=== PATIENT | female | born 1945 | race Caucasian/White ===

== ENCOUNTER 2018-10-05 07:16 | Inpatient (IN) ==
--- NOTE | 2018-10-04 19:31 | MH ---
cc: Tl Cleveland MD DATE OF ADMISSION: 10/05/2018 PREOPERATIVE DIAGNOSIS: End-stage osteoarthritis, right knee. PROPOSED SURGERY: Total knee replacement arthroplasty, right knee. ADDITIONAL DIAGNOSES: 1. Hypertension. 2. Chronic kidney disease, stage III. 3. Actinic keratosis. PERSONAL HISTORY: She does not smoke. She does not drink. She is quite active. HISTORY OF PRESENT ILLNESS: She has a long history of problems with both knees. She has been told that she has [id number] and needs a total knee replacement, but she has been putting it off. She has had steroid injections twice with temporary relief. She has been taking ibuprofen [id number] in spite of having chronic kidney disease because that is the only thing that helps her pain. She was seen several weeks ago, evaluated, had x-rays done and alternatives discussed. It was recommended to consider viscosupplementation, but she does not want anything temporary and wants a permanent fix and therefore, is being brought in for total knee replacement arthroplasty. The patient has actinic keratosis and a dermatology consult was obtained. They feel that there is no contraindication to surgery. She has a couple of lesions with a small, pink lesion in the infrapatellar area, which can be easily avoided with the surgical incision medial to it. She also has a keratotic lesion on the dorsum of the foot. The patient states that they just fall off and it is healed underneath. The supervisor shipfitters feels no emergent intervention is needed and neither of them have any evidence of infection. The procedure of total knee replacement arthroplasty and the potential risks, hazards, complications, expected results, postop care, post hospital care, pain management, nerve blocks, prophylactic anticoagulation, etc., have all been discussed. Informed consent has been obtained. No guarantees made. PHYSICAL EXAMINATION: Reveals an average built, well-nourished white female who has varus deformities of both knees. She does not use any assistive devices to ambulate. There is a small, pink spot of actinic keratosis over the patellar tendon on the right knee. There is some swelling of the right knee and lack of terminal extension of about 5 degrees and flexion of about 10 degrees. She also has a keratotic lesion in the dorsum of the foot with no open area and no evidence of infection. She has palpable pedal pulses and she moves her toes well. The patient has been following the infection prevention protocol with chlorhexidine wipes. Head is normocephalic. Pupils are reacting to light. Face symmetrical. Heart has a regular rhythm, no murmurs. Lungs are clear to auscultation. Abdomen is soft and supple. She has been recently evaluated by her disability advocate, who has cleared for her surgery. She does have chronic kidney disease. Informed consent has been obtained. No guarantees made. MD NIC Yost/yamilet , 06:48 PM , 06:59 PM
[2018-10-05] MEDS ORDERED: Sodium Chlor 0.9% Inj 40 ML, Bupivacaine Liposo PF 1.3% Inj 20 ML P-ARTICULR ONE ×2 (08:02)
[2018-10-05] MEDS ORDERED: Chlorhexidine Gluconate 2% 1 Pack (2 Cloths) TOPICAL SCH (08:24)
[2018-10-05] MEDS ORDERED: Metoprolol Tartrate 25 MG Tablet PO SCH ×2 (08:24→21:00)
[2018-10-05] MEDS ORDERED: Sodium Chlor 0.9% Inj 500 ML IV.SIG SCH (09:00)
[2018-10-05] MEDS ORDERED: ceFAZolin 2 GM Premix Inj 2 GM/50 ML PIGGYBACK IV.SIG SCH (09:00)
[2018-10-05] MEDS ORDERED: TRANEXAMIC ACID IV.SIG SCH ×2 (09:00→12:00)
[2018-10-05] MEDS ORDERED: SODIUM CHLOR 0.9% IV.SIG SCH ×2 (09:00→12:00)
[2018-10-05] MEDS ORDERED: Sodium Chlor 0.9% Inj 40 ML, Bupivacaine Liposo PF 1.3% Inj 20 ML, Bupivacaine/Epi PF 0... P-ARTICULR SCH ×3 (09:00)
[2018-10-05] MEDS ORDERED: fentaNYL Citrate Inj 250 MCG/5 ML Ampul ONE (09:24)
[2018-10-05] MEDS ORDERED: Bupivacaine/Dextrose 0.75% Inj 2 ML Ampul ONE (09:42)
[2018-10-05] MEDS ORDERED: Vancomycin Inj 750 MG in Sodium Chlor 0.9% Inj 250 ML IV.SIG ONE (10:00)
[2018-10-05] MEDS ORDERED: Aluminum/Magnesium/Simethacone Susp 30 ML UDC PO PRN (11:57)
[2018-10-05] MEDS ORDERED: Post-op Orders (for Pharmacy) OTHER STA (11:57)
[2018-10-05] MEDS ORDERED: Bisacodyl 10 MG Supp RECTAL PRN (11:57)
[2018-10-05] MEDS ORDERED: Morphine Inj 4 MG/ML Vial IV.PUSH PRN (11:57)
[2018-10-05] MEDS ORDERED: Sod Chloride 0.9% Inj 1,000 ML IV.CONT SCH (12:00)
[2018-10-05] MEDS ORDERED: *morphine SULFATE 4 MG/ML PERIprocedure ONLY ONE ×3 (12:35→13:22)
--- NOTE | 2018-10-05 13:05 | MP ---
cc: Tl Cleveland MD DATE OF OPERATION: 10/05/2018 PREOPERATIVE DIAGNOSIS: Osteoarthritis, right knee. POSTOPERATIVE DIAGNOSIS: Osteoarthritis, right knee. OPERATIVE PROCEDURE: Total knee replacement arthroplasty right knee using cemented Biomet components. Femur 62.5 mm, tibia 67 mm with I-beam, poly 12-, patella, extra small single peg. SURGEON: Tl Cleveland MD ANESTHESIA: General. TECHNIQUE: After induction of general anesthesia, the patient was placed appropriately on the operating table with the upper extremities properly protected and the well leg properly padded. Right lower extremity thoroughly prepped with alcohol and ChloraPrep and draped in routine fashion. After application of Esmarch bandage, tourniquet was inflated to 300 mmHg. A medial to midline incision was made, deepened through the subcutaneous tissue. Medial parapatellar arthrotomy incision was carried out. Patella was retracted laterally. There was oikf-iy-lior medial compartment with literally no medial meniscus. Limited medial dissection was carried out from the medial face of the tibia to the mid medial point, removing osteophytes at the same time. The femoral canal opened anterior to the posterior cruciate ligament and the distal femoral cutting guide set at 5 degrees was used to make the distal femoral cut. A tibial cut was made using the external tibial guide with about 5 degrees of posterior inclination and referencing 4 mm from the lower most portion of the medial plateau and then increased by 2 more millimeters to get a good tibial cut. Cleanup was carried out. The AP guide was now used in 3 degrees of external rotation and adjustments were made for proper external rotation after the initial holes were made, referencing the Whitesides line and the epicondylar axis. AP and chamfer cuts were made with a 62.5 mm jig. Posterior condyles were cleaned and the joint was debrided. Spacer block was used, which shows significant tightening medially and accepts the block nicely laterally. Therefore, attention was then directed to get some medial release starting anteriorly, dividing the upper 1.5 cm of the pes tendon, leaving the superficial medial collateral ligament intact by dissecting underneath to release the deep capsule and deep collateral ligament with some of the semimembranosus attachment. Once we did this, there was good balancing of the knee. Trial implants were placed and everything looked good. We used an -tibial insert, which makes it work very smoothly. Patellar was prepared following routine technique. Trial reduction was good. All trial implants removed. A dilute solution of Exparel mixed with saline and Marcaine were injected all around the joint, particularly inferomedially. Joints were thoroughly lavaged and suctioned out. The femoral canal plugged with bone and using 2 units of Biomet cement with antibiotic in it, cementation was carried out, starting with the tibia, then the femur, then the patella and extended with a 12 mm spacer. Once the cement solidified, everything looks good; tourniquet was released. Hemostasis was good. Joint was thoroughly lavaged and suctioned out, followed by introduction of a 12 mm polyethylene spacer, getting good position, alignment and stability. The wound was now closed in flexion with interrupted #2 Vicryl, supplemented with a #2 Quill, and the subcutaneous tissue with Vicryl and skin with a 3-0 subcuticular Quill and Steri-Strips. Dermabond dressing will be applied. A dressing applied with Xeroform, 4 x 4's, ABD, and a Sof-Rol and Ted bandage with ice bladder. The patient was transferred to the recovery room in satisfactory condition. The patient tolerated the procedure well. COMPLICATIONS: None. POSTOPERATIVE CONDITION: Satisfactory. TOURNIQUET TIME: 63 minutes. Initial 10 minutes, followed by deflation and reinflation because of breakthrough bleeding. ESTIMATED BLOOD LOSS: 250 mL MD NIC Yost/jeb , 12:09 PM , 12:20 PM
[2018-10-05] MEDS ORDERED: *Ondansetron Inj 4 MG/2 ML Vial PERIprocedural Use ONLY ONE (13:34)
--- NOTE | 2018-10-05 14:15 | XR ---
EXAM DATE: 10/05/2018 2:07 PM EST AGE/SEX: 73 years / Female INDICATIONS: Post-op Right knee. CLINICAL DATA: This is the patient's initial encounter. Patient reports that signs and symptoms have been present for 1 day and indicates a pain score of 9/10. MEDICAL/SURGICAL HISTORY: None. None. COMPARISON: No prior exams available for comparison. FINDINGS: Right total knee arthroplasty is present. Hardware appears intact. Alignment is anatomic. Surgical dr gray is present. CONCLUSION: Satisfactory postop appearance Electronically signed by: Hank Oneal MD 10/05/2018 2:14 PM EST
[2018-10-05] MEDS: ceFAZolin 1 GM Premix Inj 1 GM/50 ML IV.SIG SCH (17:51)
[2018-10-05] MEDS ORDERED: Vancomycin Inj 1,000 MG in Sodium Chlor 0.9% Inj 250 ML IV.SIG ONE (18:00)
[2018-10-05] MEDS: Senna/Docusate Sodium 8.6/50 MG Tablet PO SCH (21:58)
[2018-10-05] MEDS: Temazepam 15 MG Capsule PO PRN (22:04)
[2018-10-06] MEDS: ceFAZolin 1 GM Premix Inj 1 GM/50 ML IV.SIG SCH ×2 (02:30→12:59)
[2018-10-06 05:30] LABS: Hematocrit 30.4 % (35.0-46.0); Hemoglobin 10.3 gm/dL (11.6-15.3)
[2018-10-06] MEDS: Senna/Docusate Sodium 8.6/50 MG Tablet PO SCH ×2 (08:55→20:54)
[2018-10-06] MEDS ORDERED: Allopurinol 300 MG Tablet PO SCH (09:00)
[2018-10-06] MEDS ORDERED: Lisinopril 20 MG Tablet PO SCH ×2 (09:00→15:00)
[2018-10-06] MEDS ORDERED: Rivaroxaban 10 MG Tablet PO SCH (12:00)
[2018-10-06] MEDS: Rivaroxaban 10 MG Tablet PO SCH (14:33)
--- NOTE | 2018-10-06 14:41 | P.DCO ---
- Physical Therapy Knee: Total knee, Protocol: Right Right Lower Extremity Weight Bearing: Weight bearing as tolerated Right Lower Extremity Range of Motion: Active assistive ROM - Nursing RN days per week: 3 Nursing: Other (monitor dressings etc) Dressing changes: Other (leave Prineo dressing intact. Change outer drsg as needed.OK to shower starting 10/12) - Certification Need for Home Health services: I have seen patient Reshma Corcoran on 10/06/18. My clinical findings support the need for the requested home health care services because: Need for Home Health Services: Limited ability to care for self Homebound Certification: I certify that my clinical findings support that this patient is homebound because: Homebound Certification: Unsafe to leave home unassisted, Unable to use public transportation
--- NOTE | 2018-10-06 14:44 | P.PNOP ---
Subjective Interval history: doing OK Physical Exam Vital signs: Vital Signs 10/05/18 15:00 10/05/18 15:30 10/05/18 15:45 Temperature 98.0 F Pulse Rate 72 79 85 Respiratory Rate 15 17 17 Blood Pressure 128/60 142/71 H 143/71 H Pulse Oximetry 96 99 99 10/05/18 16:15 10/05/18 20:00 10/06/18 00:00 Temperature 97.6 F 98.0 F 98.1 F Pulse Rate 92 H 97 H 86 Respiratory Rate 16 18 18 Blood Pressure 156/74 H 150/66 H 128/66 Pulse Oximetry 98 95 96 10/06/18 00:39 10/06/18 04:00 10/06/18 05:15 Temperature 98.4 F Pulse Rate 93 H Respiratory Rate 16 17 16 Blood Pressure 157/71 H Pulse Oximetry 97 10/06/18 08:00 10/06/18 11:55 Temperature 98 F 98.8 F Pulse Rate 80 85 Respiratory Rate 16 16 Blood Pressure 138/65 151/65 H Pulse Oximetry 93 L 95 Intake & Output 10/05/18 10/06/18 10/06/18 18:59 06:59 18:59 Intake Total 3716.16 / 3716.16 150 / 150 100 / 100 Output Total 500 / 500 20 / 20 Balance 3216.16 / 3216.16 130 / 130 100 / 100 Weight 86.6 kg 90.2 kg Intake: IV 1716.16 / 1716.16 150 / 150 100 / 100 Ofirmev Inj 1,000 mg In 100 ml 100 / 100 100 / 100 @ 400 mls/hr IV.SIG Q12HR [facility] Rx#:[id number] LR 1000 mL Inj 1,000 ML @ 30 1000 / 1000 mls/hr IV.SIG .Q24H [facility] Rx#: [id number] Cyklokapron Inj 866 MG In NS 108.66 / 108.66 Inj 100 ML @ 200 mls/hr IV.SIG PASTA MAKER [facility] Rx#:[id number] Vancomycin Inj 1,000 MG In NS 250 / 250 Inj 250 ML @ 250 mls/hr IV.SIG ONCE ONE Rx#:[id number] Vancomycin Inj 750 MG In NS Inj 257.5 / 257.5 250 ML @ 250 mls/hr IV.SIG ONCE ONE Rx#:[id number] Ancef 1 GM Premix Inj 1 gm In 50 / 50 50 / 50 50 ml @ 100 mls/hr IV.SIG Q8H [facility] Rx#:[id number] Ancef 2 GM Premix Inj 2 gm In 50 / 50 50 ml @ 100 mls/hr IV.SIG PASTA MAKER [facility] Rx#:[id number] Anesthesia Amount 1999 Output: Estimated Blood Loss 500 / 500 Wound Drainage # 1 Right Knee Other: # Voids 5 Date of Last Bowel Movement 10/04/18 10/05/18 Weight On Admission 86.6 kg Narrative: A,A, and O Alitle sore.able to do SLR and quad sets well. Drsgs dry, Moves right foort well Results - Labs CBC & Chem 7: 10/06/18 05:11 Laboratory Results - last 24 hr 10/06/18 05:11 Hgb 10.3 L Hct 30.4 L Assessment and Plan - Ortho Post Op Day # 1 - Assessment and Plan POD 1 TKA right BMP not in, to check Doing well overall. Meds reconsiled. Med consultation for elevated BP and check on renal status
[2018-10-06 15:37] LABS: Calcium 8.2 mg/dL (8.5-10.1); Carbon Dioxide 24.1 meq/L (21.0-32.0)
--- NOTE | 2018-10-06 16:24 | P.CONIM ---
History of Present Illness Service: [facility] Consult date: 10/06/18 Requesting Physician: Tl Cleveland Reason for Consult: STAGE 3 CKD, BLOOD PRESSURE AND POST OP RIGHT TOTAL KNEE Primary Care Provider: Blaine Courtney DO Chief Complaint: STAGE 3 CKD, BP, AND POST OP RIGHT TOTAL KNEE History of Present Illness: Patient is a 73-year-old female who underwent a right total knee arthroplasty by Dr. Cleveland due to end-stage osteoarthritis of the right knee on September. We have been asked to see her regarding hypertension and chronic kidney disease stage III and postop medical management of the right total knee. Patient has a chronic history of hypertension and chronic kidney disease and actinic keratosis. Has a history of being on multiple medications. Has history of arthritis, gout, history of hysterectomy, history of hypertension, history of kidney disease stage III, chronic right knee pain, wears dentures, history of tubal ligation, history of kidney biopsy. We will adjust her medications. Will hold the hydrochlorothiazide lisinopril and switch to Norvasc. We will get a.m. labs and will follow her chronic kidney disease while she is here. Review of Systems All other systems reviewed negative except as stated in HPI PMFSH - History History Provided By: Patient - Medical History Medical History: Medical History (Last Reviewed 10/06/18 @ 16:19 by Lance Green DO) Arthritis Gout H/O: hysterectomy Hypertension Kidney disease, chronic, stage III (GFR 30-59 ml/min) Knee pain, right Wears partial dentures - Surgical History Surgical History: Surgical History (Last Reviewed 10/06/18 @ 16:19 by Lance Green DO) H/O tubal ligation Hx of biopsy - Family History Family History: Family History (Last Updated 10/06/18 @ 16:19 by Lance Green DO) Other Family history of hypertension - Social History I have reviewed the patient's Social History: No - Tobacco History Second Hand Smoke Exposure: No Tobacco Use In Past 30 Days: No Smoking Status: Never smoker - Alcohol History How Often Do You Have a Drink Containing Alcohol: Never - Substance Use History Substance History: No History of Abuse - Travel History History of Recent Travel: No Recent Travel in the [place] Within the Last 8 Weeks: No Recent Travel Out of the Country Within the Last 8 Weeks: No - Immunization History Hx Influenza Vaccine This Season: Yes Medications and Allergies Active Medications: Active Medications Hydrocodone Bitart/Acetaminophen ([place] 5/325) 2 tab PO Q6H PRN PRN Reason: PAIN SCALE 5 TO 10 Last Admin: 10/06/18 14:33 Dose: 2 tab Al Hydrox/Mg Hydrox/Simethicone (Mag-Al Plus Susp Liq) 30 ml PO Q6H PRN PRN Reason: INDIGESTION Al Hydroxide/Mg Hydroxide (Milk Of Magnesia Liq) 30 ml PO BID PRN PRN Reason: Mild Constipation Allopurinol (Zyloprim) 300 mg PO DAILY [facility] Amlodipine Besylate (Norvasc) 10 mg PO DAILY [facility] Atorvastatin Calcium (Lipitor) 40 mg PO HS [facility] Last Admin: 10/05/18 21:59 Dose: 40 mg Bisacodyl (Dulcolax Supp) 10 mg RECTAL DAILY PRN PRN Reason: SEVERE CONSITIPATION Calcium/Vitamin D (Oscal With D 250/125 Mg) 2 tab PO DAILY [facility] Chlorhexidine Gluconate (Chlorhexidine 2% Cloth) 3 pack [facility] Stop: 10/08/18 08:23 Last Admin: 10/05/18 08:40 Dose: 3 pack Clonidine HCl (Catapres) 0.1 mg PO Q6H PRN PRN Reason: HYPERTENSION Diphenhydramine HCl (Benadryl Inj) 25 mg IV.PUSH Q6H PRN PRN Reason: ITCHING Cefazolin Sodium/Dextrose (Ancef 2 Gm Premix Inj) 2 gm in 50 mls @ 100 mls/hr IV.SIG [facility] Stop: 10/09/18 08:59 Last Infusion: 10/05/18 10:10 Dose: Infused Sodium Chloride (Ns Inj) 500 mls @ 30 mls/hr IV.SIG .Q10H [facility] Acetaminophen (Ofirmev Inj) 1,000 mg in 100 mls @ 400 mls/hr IV.SIG Q12HR [facility] Last Infusion: 10/06/18 12:58 Dose: Infused Sodium Chloride (Ns Inj) 1,000 mls @ 100 mls/hr IV.CONT .Q10H [facility] Last Admin: 10/06/18 04:15 Dose: 30 mls/hr Lactulose (Lactulose Liq) 30 ml PO DAILY PRN PRN Reason: SEVERE CONSITIPATION Metoprolol Succinate (Toprol Xl) 25 mg PO [facility] Metoprolol Tartrate (Lopressor) 25 mg PO [facility] Stop: 10/08/18 08:23 Last Admin: 10/05/18 10:08 Dose: Not Given Metoprolol Tartrate (Lopressor) 25 mg PO HS [facility] Last Admin: 10/05/18 21:59 Dose: 25 mg Morphine Sulfate (Morphine Inj) 4 mg IV.PUSH Q3H PRN PRN Reason: BREAKTHROUGH PAIN Multivitamins (Theragran) 1 tab PO DAILY [facility] Last Admin: 10/06/18 08:54 Dose: 1 tab Ondansetron HCl (Zofran Inj) 4 mg IV.PUSH Q6H PRN PRN Reason: NAUSEA OR VOMITING Povidone Iodine (Betadine 7.5% Scrub) 1 applicatio [facility] Stop: 10/08/18 08:59 Povidone Iodine (Betadine 5% Antisepsis Kit) 1 applicatio EACH [facility] Stop: 10/08/18 08:23 Last Admin: 10/05/18 09:00 Dose: 1 applicatio Rivaroxaban (Xarelto) 10 mg PO Q24H [facility] Last Admin: 10/06/18 14:33 Dose: 10 mg Senna/Docusate Sodium (Darlene-Colace) 1 tab PO BID [facility] Last Admin: 10/06/18 08:55 Dose: 1 tab Sennosides (Senokot) 17.2 mg PO BID PRN PRN Reason: Moderate Constipation Sodium Chloride (Ns Flush) 2 ml IV.FLUSH BID [facility] Last Admin: 10/06/18 12:58 Dose: 2 ml Sodium Chloride (Ns Flush) 2 ml IV.FLUSH PRN PRN PRN Reason: FLUSH AFTER USING IV ACCESS Temazepam (Restoril) 15 mg PO HS PRN PRN Reason: INSOMNIA Last Admin: 10/05/18 22:04 Dose: 15 mg Vitamin D (Vitamin D3) 1,000 unit PO DAILY [facility] Allergies Allergy/AdvReac Type Severity Reaction Status Date / Time sulfamethoxazole Allergy Hives Verified 10/05/18 07:59 [From Bactrim] trimethoprim [From Bactrim] Allergy Hives Verified 10/05/18 07:59 Home Medications Medication Instructions Recorded Confirmed Type allopurinol 300 mg PO DAILY 09/22/18 10/05/18 History calcium carbonate-vitamin D3 1 tab PO DAILY 09/22/18 10/05/18 History [Calcium 500 + D] cholecalciferol (vitamin D3) 1,000 unit PO DAILY 09/22/18 10/05/18 History [Vitamin D3] flaxseed oil 1,000 mg PO DAILY 09/22/18 10/05/18 History lisinopril-hydrochlorothiazide 1 tab PO DAILY 09/22/18 10/05/18 History metoprolol succinate 25 mg PO HS 09/22/18 10/05/18 History multivitamin [Daily Multiple] 1 tab PO DAILY 09/22/18 10/05/18 History omega-3 fatty acids-fish oil [Fish 1 cap PO DAILY 09/22/18 10/05/18 History Oil] rosuvastatin [Crestor] 20 mg PO HS 09/22/18 10/05/18 History Exam Vital signs: Vital Signs 10/05/18 20:00 10/06/18 00:00 10/06/18 00:39 Temperature 98.0 F 98.1 F Pulse Rate 97 H 86 Respiratory Rate 18 18 16 Blood Pressure 150/66 H 128/66 Pulse Oximetry 95 96 10/06/18 04:00 10/06/18 05:15 10/06/18 08:00 Temperature 98.4 F 98 F Pulse Rate 93 H 80 Respiratory Rate 17 16 16 Blood Pressure 157/71 H 138/65 Pulse Oximetry 97 93 L 10/06/18 11:55 Temperature 98.8 F Pulse Rate 85 Respiratory Rate 16 Blood Pressure 151/65 H Pulse Oximetry 95 Intake & Output 10/05/18 10/06/18 10/06/18 18:59 06:59 18:59 Intake Total 3716.16 / 3716.16 150 / 150 100 / 100 Output Total 500 / 500 20 / 20 Balance 3216.16 / 3216.16 130 / 130 100 / 100 Weight 86.6 kg 90.2 kg Intake: IV 1716.16 / 1716.16 150 / 150 100 / 100 Ofirmev Inj 1,000 mg In 100 ml 100 / 100 100 / 100 @ 400 mls/hr IV.SIG Q12HR [facility] Rx#:[id number] LR 1000 mL Inj 1,000 ML @ 30 1000 / 1000 mls/hr IV.SIG .Q24H [facility] Rx#: [id number] Cyklokapron Inj 866 MG In NS 108.66 / 108.66 Inj 100 ML @ 200 mls/hr IV.SIG [facility] Rx#:[id number] Vancomycin Inj 1,000 MG In NS 250 / 250 Inj 250 ML @ 250 mls/hr IV.SIG ONCE ONE Rx#:[id number] Vancomycin Inj 750 MG In NS Inj 257.5 / 257.5 250 ML @ 250 mls/hr IV.SIG ONCE ONE Rx#:[id number] Ancef 1 GM Premix Inj 1 gm In 50 / 50 50 / 50 50 ml @ 100 mls/hr IV.SIG Q8H [facility] Rx#:[id number] Ancef 2 GM Premix Inj 2 gm In 50 / 50 50 ml @ 100 mls/hr IV.SIG [facility] Rx#:[id number] Anesthesia Amount 1999 / 1999 Output: Estimated Blood Loss 500 / 500 Wound Drainage # 1 Right Knee Other: # Voids 5 Date of Last Bowel Movement 10/04/18 10/05/18 Weight On Admission 86.6 kg Narrative: GENERAL: Awake alert and oriented x3 talkative and cooperative appears to be in no acute distress SKIN: Warm and dry. HEAD: Atraumatic. Normocephalic. EYES: Pupils equal and round. No scleral icterus. No injection or drainage. EOMI ENT: No nasal bleeding or discharge. Mucous membranes pink and moist. Tongue is midline NECK: Trachea midline. No JVD. Supple CARDIOVASCULAR: Regular rate and rhythm. S1-S2 no S3 or S4 RESPIRATORY: No accessory muscle use. Clear to auscultation. Breath sounds equal bilaterally. GASTROINTESTINAL: Abdomen soft, non-tender, nondistended. Hepatic and splenic margins not palpable. MUSCULOSKELETAL: Extremities without clubbing, cyanosis, or edema. No obvious deformities. Right knee is dressed NEUROLOGICAL: Awake and alert. No obvious cranial nerve deficits. Motor grossly within normal limits. Five out of 5 muscle strength in the arms and legs. Normal speech. PSYCHIATRIC: Appropriate mood and affect; insight and judgment normal. Results - Labs CBC & Chem 7: 10/06/18 05:11 10/06/18 15:01 Labs: Laboratory Results - last 24 hr 10/06/18 10/06/18 05:11 15:01 Hgb 10.3 L Hct 30.4 L Sodium 134 L Potassium 4.0 Chloride 102 Carbon Dioxide 24.1 Anion Gap 8 BUN 39 H Creatinine 1.77 H Estimated GFR 28 L Random Glucose 109 H Calcium 8.2 L - Imaging ITS Impressions Knee X-Ray 10/05/18 00:00 CONCLUSION: Satisfactory postop appearance Assessment and Plan - Plan Status post right total knee arthroplasty on October 05, 2018 postop day #2 -Pain control per orthopedic -DVT prophylaxis per orthopedic Hypertension currently on multiple medications including Toprol and lisinopril hydrochlorothiazide Renal insufficiency chronic kidney disease stage III -We will adjust medications and hold the lisinopril hydrochlorothiazide and switch for Norvasc 10 mg p.o. daily -Continue on metoprolol -A.m. labs Osteoarthritis -Pain control per orthopedic Hyperlipidemia continue on Crestor Continue on flaxseed oil Gout continue on allopurinol Vitamin D deficiency continue on calcium carbonate and vitamin D DVT prophylaxis per orthopedic currently on Xarelto 10 mg p.o. daily Not on GI prophylaxis at this time-denies any GI symptomatology A.m. labs DC hydrochlorothiazide and lisinopril Switch to Norvasc 10 mg p.o. daily May need prescription for Norvasc 10 mg p.o. daily at discharge Code Status: Full code Discussed Condition With: RN and patient and family Discharge Planning: Hopefully discharge tomorrow per orthopedics if cleared
[2018-10-06] MEDS: Allopurinol 300 MG Tablet PO SCH (18:11)
[2018-10-06] MEDS: Temazepam 15 MG Capsule PO PRN (21:56)
[2018-10-07 06:04] LABS: Baso % (Auto) 0.1 % (0.0-2.0); Hematocrit 32.1 % (35.0-46.0); Hemoglobin 10.7 gm/dL (11.6-15.3); Lymph # (Auto) 0.9 th/mm3 (1.0-4.8); Lymph % (Auto) 7.1 % (9.0-44.0); Mean Corpuscular HGB Conc 33.4 % (32.0-36.0); Mean Platelet Volume 9.9 fL (7.0-11.0); Mono # (Auto) 1.4 th/mm3 (0.0-0.9); Neut % (Auto) 81.8 % (16.0-70.0); Platelet Count 167 th/mm3 (150-450); Red Blood Count 3.45 mil/mm3 (4.00-5.30); Red Cell Distribution Width 14.5 % (11.6-17.2); White Blood Count 12.3 th/mm3 (4.0-11.0)
[2018-10-07 06:28] LABS: Albumin 2.8 g/dL (3.4-5.0); Anion Gap 8 meq/L (5-15); Aspartate Aminotransferase 27 U/L (15-37); Blood Urea Nitrogen 35 mg/dL (7-18); Calcium 8.1 mg/dL (8.5-10.1); Carbon Dioxide 24.5 meq/L (21.0-32.0); Chloride 106 meq/L (98-107); Glomerular Filtration Rate 32 mL/min (>89); Glucose,Random 113 mg/dL (74-106); Potassium 3.9 meq/L (3.5-5.1); Sodium 138 meq/L (136-145)
[2018-10-07 06:38] LABS: Alanine Aminotransferase 14 U/L (10-53); Alkaline Phosphatase 46 U/L (45-117); Free T4 (Free Thyroxine) 1.44 ng/dL (0.76-1.46); Phosphorus 3.4 mg/dL (2.5-4.9); Thyroid Stimulating Hormone 0.632 uIU/mL (0.358-3.740); Total Protein 6.1 g/dL (6.4-8.2)
[2018-10-07] MEDS ORDERED: amLODIPine 10 MG Tablet PO SCH (09:00)
[2018-10-07] MEDS ORDERED: Calcium/Vitamin D 250/125 MG Tablet PO SCH (09:00)
[2018-10-07] MEDS ORDERED: Lisinopril 20 MG Tablet PO SCH (09:00)
[2018-10-07] MEDS ORDERED: CALCIUM CARBONATE VITAMIN D3 PO SCH (09:00)
[2018-10-07 09:12] VITALS: BP 162/77; PULSE 98; RESP 19; TEMP 97.8; O2SAT 96
[2018-10-07 10:13] LABS: Hemoglobin A1c 5.8 % (4.3-6.0)
--- NOTE | 2018-10-07 10:49 | P.PNOP ---
Subjective Interval history: doing much better. Uncomfortable with switching BP meds. I told her she could resume home meds including LIS/hctz till she discusses with her PCP Physical Exam Vital signs: Vital Signs 10/06/18 11:55 10/06/18 16:30 10/06/18 20:00 Temperature 98.8 F 97.3 F L 99.0 F Pulse Rate 85 72 94 H Respiratory Rate 16 16 18 Blood Pressure 151/65 H 159/70 H 143/79 H Pulse Oximetry 95 93 L 97 10/07/18 00:23 10/07/18 04:15 10/07/18 08:10 Temperature 98.7 F 98.1 F 97.8 F Pulse Rate 83 83 98 H Respiratory Rate 18 18 19 Blood Pressure 130/63 169/71 H 162/77 H Pulse Oximetry 93 L 95 96 Intake & Output 10/06/18 10/07/18 10/07/18 18:59 06:59 18:59 Intake Total 1300 / 1300 1060 / 1060 Balance 1300 / 1300 1060 / 1060 Weight 86.4 kg Intake: IV 100 / 100 100 / 100 Ofirmev Inj 1,000 mg In 100 ml 100 / 100 100 / 100 @ 400 mls/hr IV.SIG Q12HR RONAL Rx#:[id number] Oral 1200 / 1200 960 / 960 Other: # Voids 5 6 Date of Last Bowel Movement 10/05/18 10/05/18 # Bowel Movements 0 sitting OOB Dressings dry, moves toes well up and down, and able to actively extend knee Results - Labs CBC & Chem 7: 10/07/18 05:00 10/07/18 05:00 Laboratory Results - last 24 hr 10/06/18 10/07/18 10/07/18 15:01 05:00 05:00 WBC 12.3 H RBC 3.45 L Hgb 10.7 L Hct 32.1 L MCV 93.0 MCH 31.0 MCHC 33.4 RDW 14.5 Plt Count 167 MPV 9.9 Neut % (Auto) 81.8 H Lymph % (Auto) 7.1 L [place] % (Auto) 11.0 H Eos % (Auto) 0.0 Baso % (Auto) 0.1 Neut # (Auto) 10.0 H Lymph # (Auto) 0.9 L [place] # (Auto) 1.4 H Eos # (Auto) 0.0 Baso # (Auto) 0.0 WBC Differential . Differential Comment Auto diff final Sodium 134 L Potassium 4.0 Chloride 102 Carbon Dioxide 24.1 Anion Gap 8 BUN 39 H Creatinine 1.77 H Estimated GFR 28 L Random Glucose 109 H Hemoglobin A1c 5.8 Calcium 8.2 L Phosphorus Magnesium Total Bilirubin AST ALT Alkaline Phosphatase Total Protein Albumin TSH Free T4 10/07/18 05:00 WBC RBC Hgb Hct MCV MCH MCHC RDW Plt Count MPV Neut % (Auto) Lymph % (Auto) [place] % (Auto) Eos % (Auto) Baso % (Auto) Neut # (Auto) Lymph # (Auto) [place] # (Auto) Eos # (Auto) Baso # (Auto) WBC Differential Differential Comment Sodium 138 Potassium 3.9 Chloride 106 Carbon Dioxide 24.5 Anion Gap 8 BUN 35 H Creatinine 1.60 H Estimated GFR 32 L Random Glucose 113 H Hemoglobin A1c Calcium 8.1 L Phosphorus 3.4 Magnesium 2.0 Total Bilirubin 0.4 AST 27 ALT 14 Alkaline Phosphatase 46 Total Protein 6.1 L Albumin 2.8 L TSH 0.632 Free T4 1.44 Assessment and Plan - Ortho Post Op Day # 2 - Assessment and Plan POD 1 TKA right BMP not in, to check Doing well overall. Meds reconsiled. Med consultation for elevated BP and check on renal status - Attending Attestation Attending Attestation: DC home with HHC and DME Detailed DC [id number] given Has FU apptt
[2018-10-07] MEDS: Allopurinol 300 MG Tablet PO SCH (10:55)
[2018-10-07] MEDS: Senna/Docusate Sodium 8.6/50 MG Tablet PO SCH (10:55)
--- NOTE | 2018-10-07 11:27 | MD ---
cc: Tl Cleveland MD DATE OF DISCHARGE: ADMITTING DIAGNOSIS: End-stage osteoarthritis, right knee. DISCHARGE DIAGNOSIS: End-stage osteoarthritis, right knee. ADDITIONAL DIAGNOSES: 1. Hypertension. 2. Chronic kidney disease. 3. Actinic keratosis. HISTORY: History consistent with longstanding problems with both knees and she has exhausted nonoperative methods of treatment. After appropriate preoperative workup, she was brought to the hospital and had surgery performed on the day of admission. Postoperative course uneventful. She was seen by hospitalist who recommended that she change her antihypertensives, but the patient does not want to change it and therefore she is advised to continue her preadmission medications until she has a chance to discuss it with her primary care physician. Other than that discharge medication for pain is hydrocodone 5/325 mg 2 q.i.d. p.r.n. for pain #56 and Xarelto 10 mg daily, #30 for prophylactic anticoagulation. Post hospital and postoperative course, have been discussed. Home health care has been arranged. Postoperative x-rays and labs are all satisfactory. Tl Cleveland MD SS/sv , 10:52 AM , 10:59 AM
--- NOTE | 2018-10-07 11:31 | P.PN ---
Subjective Interval history: Follow-up visit for right knee arthroplasty, HTN and CKD. Patient seen and examined sitting up in chair with at bedside. She denies any fevers, chills, nausea, vomiting, diarrhea, cough, shortness of breath or chest pain. She reports that her pain is well controlled. We discussed changes in blood pressure medication regarding new prescription for Norvasc. Patient encouraged to discuss this with her morphology teacher as well. Patient reports some hesitancy with voiding, denies any fevers, suprapubic pain or dysuria. Discussed possibly related to narcotic use. Patient was provided with prescription for bethanechol to use as needed at home. If symptoms should worsen patient is to contact her PCP or come to the ED. Physical Exam Vital signs: Vital Signs 10/06/18 11:55 10/06/18 16:30 10/06/18 20:00 Temperature 98.8 F 97.3 F L 99.0 F Pulse Rate 85 72 94 H Respiratory Rate 16 16 18 Blood Pressure 151/65 H 159/70 H 143/79 H Pulse Oximetry 95 93 L 97 10/07/18 00:23 10/07/18 04:15 10/07/18 08:10 Temperature 98.7 F 98.1 F 97.8 F Pulse Rate 83 83 98 H Respiratory Rate 18 18 19 Blood Pressure 130/63 169/71 H 162/77 H Pulse Oximetry 93 L 95 96 Intake & Output 10/06/18 10/07/18 10/07/18 18:59 06:59 18:59 Intake Total 1300 / 1300 1060 / 1060 Balance 1300 / 1300 1060 / 1060 Weight 86.4 kg Intake: IV 100 / 100 100 / 100 Ofirmev Inj 1,000 mg In 100 ml 100 / 100 100 / 100 @ 400 mls/hr IV.SIG Q12HR RONAL Rx#:[id number] Oral 1200 / 1200 960 / 960 Other: # Voids 5 6 Date of Last Bowel Movement 10/05/18 10/05/18 # Bowel Movements 0 Narrative: GENERAL: Well-developed well-nourished female sitting up in chair in no acute distress. SKIN: Warm and dry. HEAD: Atraumatic. Normocephalic. EYES: Pupils equal and round. No scleral icterus. No injection or drainage. ENT: No nasal bleeding or discharge. Mucous membranes pink and moist. NECK: Trachea midline. CARDIOVASCULAR: Regular rate and rhythm. RESPIRATORY: No accessory muscle use. Clear to auscultation. Breath sounds equal bilaterally. GASTROINTESTINAL: Abdomen soft, non-tender, nondistended. + Bowel sounds. MUSCULOSKELETAL: Extremities without clubbing, cyanosis, or edema. No obvious deformities. Right knee in cooling device. Right foot with +movement, capillary refill <3 seconds, + sensation. NEUROLOGICAL: Awake and alert. No obvious cranial nerve deficits. Motor grossly within normal limits. Normal speech. PSYCHIATRIC: Appropriate mood and affect; insight and judgment normal. Results - Labs CBC & Chem 7: 10/07/18 05:00 10/07/18 05:00 Laboratory Results - last 24 hr 10/06/18 10/07/18 10/07/18 15:01 05:00 05:00 WBC 12.3 H RBC 3.45 L Hgb 10.7 L Hct 32.1 L MCV 93.0 MCH 31.0 MCHC 33.4 RDW 14.5 Plt Count 167 MPV 9.9 Neut % (Auto) 81.8 H Lymph % (Auto) 7.1 L [place] % (Auto) 11.0 H Eos % (Auto) 0.0 Baso % (Auto) 0.1 Neut # (Auto) 10.0 H Lymph # (Auto) 0.9 L [place] # (Auto) 1.4 H Eos # (Auto) 0.0 Baso # (Auto) 0.0 WBC Differential . Differential Comment Auto diff final Sodium 134 L Potassium 4.0 Chloride 102 Carbon Dioxide 24.1 Anion Gap 8 BUN 39 H Creatinine 1.77 H Estimated GFR 28 L Random Glucose 109 H Hemoglobin A1c 5.8 Calcium 8.2 L Phosphorus Magnesium Total Bilirubin AST ALT Alkaline Phosphatase Total Protein Albumin TSH Free T4 10/07/18 05:00 WBC RBC Hgb Hct MCV MCH MCHC RDW Plt Count MPV Neut % (Auto) Lymph % (Auto) [place] % (Auto) Eos % (Auto) Baso % (Auto) Neut # (Auto) Lymph # (Auto) [place] # (Auto) Eos # (Auto) Baso # (Auto) WBC Differential Differential Comment Sodium 138 Potassium 3.9 Chloride 106 Carbon Dioxide 24.5 Anion Gap 8 BUN 35 H Creatinine 1.60 H Estimated GFR 32 L Random Glucose 113 H Hemoglobin A1c Calcium 8.1 L Phosphorus 3.4 Magnesium 2.0 Total Bilirubin 0.4 AST 27 ALT 14 Alkaline Phosphatase 46 Total Protein 6.1 L Albumin 2.8 L TSH 0.632 Free T4 1.44 Assessment and Plan - Plan Status post right total knee arthroplasty on October 05, 2018 -Pain control per orthopedic -DVT prophylaxis per orthopedic Hypertension currently on multiple medications including Toprol and lisinopril hydrochlorothiazide - Patient started on Norvasc, to discuss further with her PCP and morphology teacher. Renal insufficiency chronic kidney disease stage III -Hold the lisinopril & hydrochlorothiazide, switch for Norvasc 10 mg p.o. daily. New prescription provided for patient. -Renal function slightly improved this morning. Osteoarthritis -Pain control per orthopedic Hyperlipidemia continue on Crestor Continue on flaxseed oil Gout continue on allopurinol Vitamin D deficiency continue on calcium carbonate and vitamin D Urinary hesitancy -Likely secondary to narcotic use. Discussed with patient if symptoms should worsen she should contact her PCP or if unable to void will need to come to the ER -Prescription for bethanechol provided to assist with hesitancy. DVT prophylaxis per orthopedic Discussed Condition With: Patient, and RN
[2018-10-07] MEDS: Rivaroxaban 10 MG Tablet PO SCH (12:56)
== END 2018-10-07 13:24 | disposition home health service (06) ==
LOC: HSDC 07:16 → N06 16:34
PROVIDERS: ADMIT Orthopaedic Surgery; ATTEND Orthopaedic Surgery